=== PATIENT | male | born 1980 | race Caucasian/White ===

== ENCOUNTER 2023-08-27 09:51 | Outpatient (CLI) | payer BC | END 2023-08-27 09:52 | disposition home or self-care (01) | LOC: BICMRI 09:51 | PROVIDERS: ATTEND Physician Assistant | DX: M47.12 Other spondylosis with myelopathy, cervical region (principal); M50.022 Cervical disc disorder at C5-C6 level with myelopathy; Z98.890 Other specified postprocedural states | CPT/HCPCS: 72040; 72141 ==